=== PATIENT | female | born 1955 | race Two or more races ===

== ENCOUNTER → 2019-12-10 | Outpatient (CLI) | payer OTHER ==
--- NOTE | 2019-12-10 13:16 | RAD ---
MR of the right ankle and right foot TECHNIQUE: Routine multiplanar sequences are obtained through the right ankle and through the right foot. Right ankle: The peroneal tendons are intact. Anterior talofibular ligament is thin but appears intact. Calcaneofibular ligament and posterior talofibular ligament are intact. Tibiofibular syndesmotic ligaments are intact. Posterior tibial and flexor tendons are intact. No acute medial ligamentous tear. Anterior tibial and extensor tendons are intact. Achilles tendon intact. No acute plantar fasciitis. Subtalar joints are patent. Tarsal sinus intact. Talar dome is intact. The navicular bone, particularly the lateral aspect, is severely flattened and deformed with marrow edema and intraosseous cystic change. There is a possible fracture of the lateral aspect of the navicular bone. These findings appear chronic. Severe degenerative changes at the tarsal joints with patchy marrow edema about the tarsal bones. No evidence of overtly aggressive bone destruction. No significant large joint effusion. Mild soft tissue edema around the ankle. Right foot: No evidence of acute fracture. No acute marrow edema or aggressive bone destruction. Severe degenerative changes at the tarsal joints and midfoot are again seen as is old appearing fracture deformity of the lateral navicular bone. The visualized tendons are intact. No significant tendon sheath fluid. No significant joint effusion. Small fluid signal collection just superior to the distal talus likely a small ganglion cyst. IMPRESSION: 1. Severe degenerative changes about the tarsal joints and midfoot. 2. Severe flattening and deformity of the lateral navicular bone, with a chronic appearing nondisplaced fracture. Electronically signed by: Joes Sinclair MD (12/10/2019 1:13 PM) [id number]
== END | disposition home or self-care (01) ==
LOC: MRI 10:35
PROVIDERS: ATTEND Family Medicine
DX: M19.071 Primary osteoarthritis, right ankle and foot (principal); M95.8 Other specified acquired deformities of musculoskeletal system; M85.68 Other cyst of bone, other site
CPT/HCPCS: 73718; 73721

== ENCOUNTER → 2021-03-27 | Outpatient (CLI) | payer OTHER ==
--- NOTE | 2021-03-27 12:54 | RAD ---
EXAM: AP, lateral and oblique views of bilateral knees DATE: 03/27/2021 11:31 AM INDICATION: Reason: BILATERAL KNEE PAIN. WORSENING OVER THE COURSE OF SEVERAL YEARS. / Spl. Instructi ons: / History: COMPARISON: No Prior FINDINGS: No acute fracture or dislocation. No joint effusion. Moderate medial compartment joint space narrowi ng bilaterally with tricompartmental osteophytes. IMPRESSION: No acute fracture or dislocation. Moderate to severe bilateral knee joint osteoarthritis Electronically signed by: Brandyn Degroot MD (03/27/2021 12:52 PM) MANNIE
== END ==
LOC: RAD 11:13
PROVIDERS: ATTEND Family Medicine
DX: M17.0 Bilateral primary osteoarthritis of knee (principal)
CPT/HCPCS: 73562-50